=== PATIENT | male | born 1985 | race Caucasian/White ===

== ENCOUNTER 2017-11-10 11:59 | Emergency (ER) | payer OTHER ==
[2017-11-10 12:06] VITALS: BP 156/91
--- NOTE | 2017-11-10 12:23 | ER Document Report ---
HPI - HPI Patient complains to provider of: toe swelling Onset: Other - few days Pain Level: 3 Context: 31 yo male pulled out some ingrown nail and pus came out yesterday, more swollen today. Associated Symptoms: None Exacerbated by: Denies Relieved by: Denies - ROS ROS below otherwise negative: Yes Systems Reviewed and Negative: Yes All other systems reviewed and negative Past Medical History - General Information source: Patient - Social History Smoking Status: Never Smoker Frequency of alcohol use: None Drug Abuse: None Lives with: Family Family History: Reviewed & Not Pertinent - Medical History Medical History: Negative Surgical Hx: Negative Vertical Provider Document - CONSTITUTIONAL Agree With Documented VS: Yes Exam Limitations: No Limitations General Appearance: No Apparent Distress - INFECTION CONTROL TRAVEL OUTSIDE OF THE [place] IN LAST 30 DAYS: No - MUSCULOSKELETAL/EXTREMETIES Musculoskeletal/Extremeties: MAEW, FROM, Tender - mld swelling and erythema to tibial side of right great toenail. - NEURO Level of Consciousness: Alert Motor/Sensory: No Motor Deficit, No Sensory Deficit - DERM Integumentary: No Rash Course - Re-evaluation Re-evalutation: 11/10/17 offered to partially remove the nail, he wants to try soaking and antibiotics. 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
== END 2017-11-10 12:43 | disposition home or self-care (01) ==
LOC: ER 11:59
DX: L60.0 Ingrowing nail (principal)
CPT/HCPCS: 99283